=== PATIENT | female | born 1970 | race Asian ===

== ENCOUNTER 2017-06-01 01:11 | Emergency (ER) | payer SELFPAY ==
[~2017-06-01] VITALS: Ht 152.4 cm; Wt 54.4 kg
[~2017-06-01 01:11] MED LIST: NKM
[2017-06-01 01:25] VITALS: BP 164/100
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
[2017-06-01 01:58] LABS: BASOPHILS % (AUTO) 0.8 % (0.0-2.0); EOSINOPHILS % (AUTO) 1.1 % (0.0-3.0); HEMATOCRIT 38.9 % (37.0-47.0); LYMPHOCYTES % (AUTO) 37.1 % (20.0-45.0); MEAN CORPUSCULAR VOLUME 89 FL (80-99); MONOCYTES % (AUTO) 7.2 % (1.0-10.0); PLATELET COUNT 219 K/UL (150-450); RED BLOOD COUNT 4.35 M/UL (4.20-5.40); RED CELL DISTRIBUTION WIDTH 11.1 % (11.6-14.8); WHITE BLOOD COUNT 7.7 K/UL (4.8-10.8)
[2017-06-01 02:06] LABS: ANION GAP 7 mmol/L (5-15); BLOOD UREA NITROGEN 18 mg/dL (7-18); CALCIUM 9.4 MG/DL (8.5-10.1); CARBON DIOXIDE 30 MMOL/L (21-32); CHLORIDE 100 MMOL/L (98-107); CREATININE 0.6 MG/DL (0.55-1.30); POTASSIUM 3.6 MMOL/L (3.5-5.1); SODIUM 137 MMOL/L (136-145)
[2017-06-01 02:17] LABS: ALANINE AMINOTRANSFERASE 26 U/L (12-78); ALBUMIN 4.1 G/DL (3.4-5.0); ALBUMIN/GLOBULIN RATIO 1.1 (1.0-2.7); ALKALINE PHOSPHATASE 72 U/L (46-116); ASPARTATE AMINO TRANSFERASE 28 U/L (15-37); BILIRUBIN,TOTAL 0.3 MG/DL (0.2-1.0); CREATINE KINASE 163 U/L (26-308)
[2017-06-01 02:24] LABS: APPEARANCE,URINE CLEAR; BILIRUBIN, URINE NEGATIVE (NEGATIVE); COLOR,URINE PALE YELLOW; GLUCOSE, URINE (UA) NEGATIVE (NEGATIVE); KETONES,URINE NEGATIVE (NEGATIVE); LEUKOCYTE ESTERASE ,URINE 2+ (NEGATIVE); NITRITE,URINE NEGATIVE (NEGATIVE); PH,URINE 6 (4.5-8.0); PROTEIN,URINE NEGATIVE (NEGATIVE); UROBILINOGEN,URINE NORMAL MG/DL (0.0-1.0)
[2017-06-01 05:30] VITALS: BP 122/86
[2017-06-01 05:55] VITALS: BP 122/86
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
--- NOTE | 2017-06-01 11:28 | Diagnostic Imaging Report ---
Indication: Knee pain Technique: 4 views of the right knee Comparison: None Findings: No suprapatellar effusion. No acute fractures. No dislocations. Joint spaces are preserved Impression: Negative
--- NOTE | 2017-06-01 11:29 | Diagnostic Imaging Report ---
Indication: Reason For Exam: PAIN Technique: 2 views of the right hip Comparison: none Findings: No acute fractures. No dislocations. Joint spaces are preserved Impression: Negative
== END 2017-06-01 05:55 | disposition home or self-care (01) ==
LOC: EDBD 01:11 → EMR 01:20
DX: R07.9 Chest pain, unspecified (principal); M25.561 Pain in right knee; M25.551 Pain in right hip; V43.52XA Car driver injured in collision with other type car in traffic accident, initial encounter; Y92.410 Unspecified street and highway as the place of occurrence of the external cause
CPT/HCPCS: 36415; 71045; 71260; 73502; 73564; 80053; 81003; 81025; 82550; 83880; 84484; 85025; 85610; 85730; 99284; Q9967